=== PATIENT | male | born 1990 | race Asian ===

== ENCOUNTER 2017-09-05 20:53 | Emergency (ER) | payer OTHER ==
[~2017-09-05] VITALS: Ht 172.7 cm; Wt 96.2 kg
[2017-09-05] MEDS ORDERED: Robaxin500 MG PO (22:21)
[2017-09-05] MEDS ORDERED: NAPR550 PO (22:21)
== END 2017-09-05 22:45 | disposition home or self-care (01) ==
LOC: ER 20:53
DX: T14.8XXA Other injury of unspecified body region, initial encounter (principal); M54.2 Cervicalgia; M54.6 Pain in thoracic spine; F17.200 Nicotine dependence, unspecified, uncomplicated; V47.5XXA Car driver injured in collision with fixed or stationary object in traffic accident, initial encounter
CPT/HCPCS: 71046; 72040; 99283